=== PATIENT | male | born 1985 | race American Indian/Alaskan Native ===

== ENCOUNTER 2021-09-21 17:09 | Emergency (ER) | payer SELFPAY ==
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
[2021-09-21 17:24] VITALS: BP 159/68
== END 2021-09-21 17:25 ==
LOC: ED 17:09
DX: Z02.89 Encounter for other administrative examinations (principal)
CPT/HCPCS: 99282